=== PATIENT | female | born 1980 | race African-American/Black ===

== ENCOUNTER → 2017-09-02 | Outpatient (CLI) | payer OTHER ==
--- NOTE | 2017-09-02 09:55 | RAD ---
Abdominal ultrasound, 09/02/2017: History: Abdominal pain, previous hernia repair The gallbladder is within normal limits in size. There is no sonographic evidence of cholelithiasis. The gallbladder gómez are not thickened. No bile duct dilatation is seen. There is no evidence of a hepatic mass. The visualized portions of the pancreas are unremarkable. The spleen is of normal size. There is a 1.3 cm cyst in the lower pole of the right kidney. The kidneys are otherwise unremarkable. The abdominal aorta and inferior vena cava show no abnormality. No free fluid is evident in the abdomen. Sonographic evaluation of the anterior abdominal wall was also performed. A portion of the abdominal wall in the periumbilical region is obscured with shadowing, presumably representing postsurgical change. No definite recurrent hernia is seen. CT scanning would better delineate this region, if clinically indicated. IMPRESSION: 1. Small right renal cyst. 2. No acute abdominal abnormality is detected.
== END | disposition home or self-care (01) ==
LOC: US 07:50
PROVIDERS: ATTEND Surgery
DX: K43.9 Ventral hernia without obstruction or gangrene (principal); N28.1 Cyst of kidney, acquired
CPT/HCPCS: 76700

== ENCOUNTER → 2017-12-27 | Outpatient (CLI) | payer OTHER | END | disposition home or self-care (01) | LOC: SURG 14:17 | PROVIDERS: ATTEND Anesthesiology | DX: M54.16 Radiculopathy, lumbar region (principal); M47.817 Spondylosis without myelopathy or radiculopathy, lumbosacral region | CPT/HCPCS: 99204 ==

== ENCOUNTER → 2018-01-31 | Outpatient (CLI) | payer OTHER ==
[~2018-01-31] MED LIST: 0.9 % SODIUM CHLORIDE 10 ML VIAL ONE; DEXAMETHASONE SOD PHOS 4 MG/ML VIAL ONE; IOHEXOL 300 MG/ML 50 ML VIAL. ONE; LIDOCAINE 1% PF 30 ML VIAL. ONE
[2018-01-31 12:36] LABS: U PREG PATIENT NEGATIVE (NEG)
== END ==
LOC: SURG 10:42
PROVIDERS: ATTEND Anesthesiology
DX: M54.16 Radiculopathy, lumbar region (principal); M47.817 Spondylosis without myelopathy or radiculopathy, lumbosacral region
CPT/HCPCS: 64483; 64484; 81025; J1100; J2001; Q9967; 64480